=== PATIENT | female | born 1940 ===

== ENCOUNTER 2023-04-07 19:03 | Inpatient (IN) | payer MEDICARE, SELFPAY ==
[2023-04-07 19:30] VITALS: BP 168/79; PULSE 59; RESP 16; TEMP 36.6; O2SAT 98
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
[2023-04-07 22:03] VITALS: BMI 20.8
[2023-04-07] MEDS: Donepezil HCl 10 MG TABLET PO (22:10)
[2023-04-07] MEDS: Mirtazapine 7.5 MG TABLET PO (22:10)
--- NOTE | 2023-04-08 | ECG_ITS ---
Test Reason : CP Blood Pressure : / mmHG Vent. Rate : 065 BPM Atrial Rate : 065 BPM P-R Int : 160 ms QRS Dur : 122 ms QT Int : 452 ms P-R-T Axes : 000 166 161 degrees QTc Int : 470 ms Normal sinus rhythm Right bundle branch block Left posterior fascicular block Bifascicular block Inferior infarct , age undetermined Abnormal ECG No previous ECGs available Referred By: Ricardo Foster Electronically Signed By:PAN PALACIO MD
[2023-04-08] MEDS: Levothyroxine Sodium 75 MCG TABLET PO (05:53)
[2023-04-08 06:45] LABS: Cholesterol 173 mg/dL; HDL Cholesterol 57 mg/dL; LDL Cholesterol Calculated 102 mg/dl; Triglycerides 73 mg/dL
[2023-04-08 07:01] LABS: TSH reflex Free T4 12.79 uIU/mL (0.32-4.0)
[2023-04-08 07:55] LABS: Estimated Average Glucose 103 mg/dL; Hemoglobin A1c % 5.2 %
[2023-04-08 08:20] VITALS: BP 136/64; PULSE 79; RESP 18; TEMP 36.3; O2SAT 96
[2023-04-08] MEDS: Pravastatin Sodium 20 MG TABLET PO (09:18)
[2023-04-08] MEDS: predniSONE 2.5 MG TABLET PO (09:18)
--- NOTE | 2023-04-08 11:37 | HO.PSYADMNOT ---
HPI Date of Service: 04/08/23 Chief Complaint: Anxiety, depression Sources of Information: patient interviewed, chart reviewed and crisis/core team assessment reviewed HPI Subjective Notes: Saldana Warning and Conditional Voluntary Narrative: Ms. Vidal is a 83 year-old woman with hx of Dementia and depression (hx of ECT in her 40's) who was brought to [facility] from [facility] where she resides due to increase paranoid, combative behaviors. On the unit, pt presents as intermittently irritable. She reports she does not like the other facility because they don't do anything. Pt does not seem to recall increase agitation nor combative behaviors there. She does not know the year or month. She believes she is now living here. She states, well, at least they have movies here, but it is loud. She denies any physical concerns. She denies SI/HI. No signs of psychosis but patient is guarded. Past Psychiatric History: Inpt: in her 40's pt has hx of ECT. Past medication trials: olanzapine Hx of suicide attempts but unclear dates Medical Evaluation Reviewed: Yes Diagnostics Vital Signs (24Hr): Vital Signs - 24 hr 04/07/23 19:30 04/08/23 08:20 Temperature 97.9 F 97.4 F Pulse Rate 59 79 Respiratory Rate 16 18 Blood Pressure 168/79 H 136/64 Pulse Oximetry 98 96 Oxygen Delivery Method Room Air Room Air BMI result Body Mass Index 20.8 Labs Labs: Laboratory Results - last 48 hr 04/08/23 04/08/23 06:17 06:17 Estimat Average Glucose 103 Hemoglobin A1c % 5.2 Triglycerides 73 Cholesterol 173 LDL Cholesterol, Calc 102 HDL Cholesterol 57 TSH 12.79 H Free T4 0.80 Meds/Allergies Meds Home Medications Medication Instructions Recorded Confirmed Type donepezil 10 mg tablet 10 mg PO BEDTIME 04/07/23 04/07/23 History levothyroxine 75 mcg tablet 75 mcg PO DAILY 04/07/23 04/07/23 History mirtazapine 7.5 mg tablet 7.5 mg PO BEDTIME 04/07/23 04/07/23 History pravastatin 20 mg tablet 20 mg PO DAILY 04/07/23 04/07/23 History prednisone 2.5 mg tablet 2.5 mg PO DAILY 04/07/23 04/07/23 History Allergies Allergies Allergy/AdvReac Type Severity Reaction Status Date / Time citalopram AdvReac Unknown Verified 04/07/23 21:39 clopidogrel AdvReac Unknown Verified 04/07/23 21:39 isosorbide AdvReac Unknown Verified 04/07/23 21:39 tramadol AdvReac Unknown Verified 04/07/23 21:39 Mental Status Exam Mental Status Exam Narrative: Appearance: casually groomed, good hygiene, in NAD Behavior: somewhat guarded Psychomotor: no agitation or retardation noted Speech: clear, normal rate/rhythm/volume, spontaneous TP: tangential TC: not liking where she lives and thinks she now lives here in hospital Mood: okay Affect: somewhat irritable SI: none HI: none VH/AH: none Delusions: somewhat suspicious Insight/judgment: impaired x 2. Memory/cog: alert, not oriented to place, situation nor month or year. Assessment & Plan Assessment & Plan (1) Major neurocognitive disorder due to multiple etiologies: Status: Acute Code(s): F02.80 - Dementia in other diseases classified elsewhere, unspecified severity, without behavioral disturbance, psychotic disturbance, mood disturbance, and anxiety Plan Mrs. Vidal is an 83 year-old woman with hx of dementia, depression in her 40's (hx of ECT) who was brought to [facility] due to increase combative behaviora and increase paranoia. On the unit, pt presents as guarded and somewhat irritable. She thinks she now lives here. She has a HCP, who is her son. She is also DNR/DNI- pending copy of [facility] and HCP. PLAN 1. Admit to S1, 5 minutes check 2. continue olanzapine, prn as well 3. Obtain collateral information 4. Aftercare planning. Patient educated on: diagnosis and medication risk/benefits Reason for continued inpatient stay Substantial Risk for: harm to others and inability to function Statement Statement: I have reviewed the history and physical and performed a pertinent examination on my patient. No changes have occurred unless specified. If the History and Physical was not performed prior to admission, the Hospitalist's service will be consulted for completing the admission physical. Time Spent With Patient Time: Total time managing care of this patient today ____ minutes.
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
[2023-04-08 18:00] VITALS: BP 150/65; PULSE 59; RESP 19; TEMP 36.2; O2SAT 94
[2023-04-08] MEDS: Mirtazapine 7.5 MG TABLET PO (20:18)
[2023-04-08] MEDS: Donepezil HCl 10 MG TABLET PO (20:18)
[2023-04-09] MEDS: Levothyroxine Sodium 75 MCG TABLET PO (06:12)
[2023-04-09 07:00] VITALS: BMI 20.9
[2023-04-09 08:00] VITALS: BP 177/83; PULSE 68; RESP 16; TEMP 36.4; O2SAT 97
[2023-04-09] MEDS: Pravastatin Sodium 20 MG TABLET PO (08:33)
[2023-04-09] MEDS: predniSONE 2.5 MG TABLET PO (08:33)
[2023-04-09 19:59] VITALS: BP 164/70; PULSE 61; RESP 15; O2SAT 94
[2023-04-09] MEDS: Mirtazapine 7.5 MG TABLET PO (20:00)
[2023-04-09] MEDS: Donepezil HCl 10 MG TABLET PO (20:00)
[2023-04-10] MEDS: Levothyroxine Sodium 75 MCG TABLET PO (06:26)
--- NOTE | 2023-04-10 06:27 | HO.PSYCHPN ---
Subjective Subjective Date of Service: 04/09/23 Reason For Visit: Anxiety, depression Subjective Notes: Conditional Voluntary Healthcare Proxy: Yes Interim History: Patient having a difficult time irritable dysphoric admitted secondary to behavior problems irritability at assisted living Needs much reassurance and orientation Review of Systems Acute medical concerns: Yes TSH elevated Mental Status Exam Mental Status Exam Narrative: Appearance: casually groomed, good hygiene, restless Behavior: somewhat guarded Psychomotor: Restless asking what I should do Speech: clear, normal rate/rhythm/volume, spontaneous TP: tangential TC: not liking where she lives and thinks she now lives here in hospital Mood: Unhappy dysphoric Affect: somewhat irritable SI: none HI: none VH/AH: none Delusions: somewhat suspicious Insight/judgment: impaired x 2. Memory/cog: alert, not oriented to place, situation nor month or year. Diagnostics Vital Signs (24Hr): Vital Signs - 24 hr 04/09/23 08:00 04/09/23 19:59 Temperature 97.6 F Pulse Rate 68 61 Respiratory Rate 16 15 Blood Pressure 177/83 H 164/70 H Pulse Oximetry 97 94 Oxygen Delivery Method Room Air Room Air BMI result Body Mass Index 20.9 Labs Labs: Laboratory Results - last 48 hr 04/08/23 04/08/23 06:17 06:17 Estimat Average Glucose 103 Hemoglobin A1c % 5.2 Triglycerides 73 Cholesterol 173 LDL Cholesterol, Calc 102 HDL Cholesterol 57 TSH 12.79 H Free T4 0.80 Medications Medications Current Medications Acetaminophen (Acetaminophen 325 Mg Tablet) 650 mg PO Q6H PRN PRN Reason: Headache/Pain Mild Scale (1-3) Al Hydroxide/Mg Hydroxide (Magnesium Hydrox/Alum Hydrox 30 Ml Oral.Susp) 30 ml PO Q6H PRN PRN Reason: Heartburn/Nausea Donepezil HCl (Donepezil Hcl 10 Mg Tablet) 10 mg PO BEDTIME [facility] Last Admin: 04/09/23 20:00 Dose: 10 mg Levothyroxine Sodium (Levothyroxine Sodium 75 Mcg Tablet) 75 mcg PO DAILY@0700 [facility] Last Admin: 04/10/23 06:26 Dose: 75 mcg Magnesium Hydroxide (Milk Of Magnesia 30 Ml Oral.Susp) 30 ml PO DAILY PRN PRN Reason: Constipation Mirtazapine (Mirtazapine 7.5 Mg Tablet) 7.5 mg PO BEDTIME [facility] Last Admin: 04/09/23 20:00 Dose: 7.5 mg Olanzapine (Olanzapine 2.5 Mg Tablet) 2.5 mg PO TID PRN PRN Reason: agitation Pravastatin Sodium (Pravastatin Sodium 20 Mg Tablet) 20 mg PO DAILY [facility] Last Admin: 04/09/23 08:33 Dose: 20 mg Prednisone (Prednisone 2.5 Mg Tablet) 2.5 mg PO DAILY [facility] Last Admin: 04/09/23 08:33 Dose: 2.5 mg Trazodone HCl (Trazodone Hcl 50 Mg Tablet) 50 mg PO BEDTIME MRX1 PRN PRN Reason: Insomnia Allergies Allergies Allergy/AdvReac Type Severity Reaction Status Date / Time citalopram AdvReac Unknown Verified 04/07/23 21:39 clopidogrel AdvReac Unknown Verified 04/07/23 21:39 isosorbide AdvReac Unknown Verified 04/07/23 21:39 tramadol AdvReac Unknown Verified 04/07/23 21:39 Assessment & Plan Assessment & Plan (1) Major neurocognitive disorder due to multiple etiologies: Status: Acute Code(s): F02.80 - Dementia in other diseases classified elsewhere, unspecified severity, without behavioral disturbance, psychotic disturbance, mood disturbance, and anxiety Plan Mrs. Vidal is an 83 year-old woman with hx of dementia, depression in her 40's (hx of ECT) who was brought to [facility] due to increase combative behaviora and increase paranoia. On the unit, pt presents as guarded and somewhat irritable. She thinks she now lives here. She has a HCP, who is her son. She is also DNR/DNI- pending copy of [facility] and HCP. PLAN 1. Admit to S1, 5 minutes check 2. continue olanzapine, prn as well 3. Obtain collateral information 4. Aftercare planning. 04/09/2023 Continue mirtazapine Aricept increase Synthroid to 100 mcg if we were clear that patient has been taking the 75 mcg at home at assisted living Suggest Namenda to help with behavioral difficulties Patient was seen on 04/09/22 approximately 11:30 late entry Reason for continued inpatient stay Substantial Risk for: inability to function, rapid decompensation and med/psych decompensation Time Spent With Patient Time: Total time managing care of this patient today ____ minutes.
[2023-04-10 07:45] VITALS: BP 151/70; PULSE 69; RESP 18; TEMP 36.6; O2SAT 95
[2023-04-10] MEDS: predniSONE 2.5 MG TABLET PO (08:04)
[2023-04-10] MEDS: Pravastatin Sodium 20 MG TABLET PO (08:04)
--- NOTE | 2023-04-10 10:24 | HO.PSYCHPN ---
Subjective Subjective Date of Service: 04/10/23 Reason For Visit: Anxiety, depression Subjective Notes: Conditional Voluntary Interim History: Per nursing, pt slept through the night. Pt thinks she now lives here. She tells this song writer she does not belong in a place where there are old people, I'm younger than them pointing at her peers. Pt not oriented to place or situation. No behavioral concerns, but will add low dose antipsychotic may help with some suspiciousness. Review of Systems Review of Systems Patient has no acute medical complaints at this time Mental Status Exam Mental Status Exam Narrative: Appearance: casually groomed, good hygiene, restless Behavior: somewhat guarded Psychomotor: Restless asking what I should do Speech: clear, normal rate/rhythm/volume, spontaneous TP: tangential TC: not liking where she lives and thinks she now lives here in hospital Mood: Unhappy dysphoric Affect: somewhat irritable SI: none HI: none VH/AH: none Delusions: somewhat suspicious Insight/judgment: impaired x 2. Memory/cog: alert, not oriented to place, situation nor month or year. Diagnostics Vital Signs (24Hr): Vital Signs - 24 hr 04/09/23 19:59 04/10/23 07:45 Temperature 97.9 F Pulse Rate 61 69 Respiratory Rate 15 18 Blood Pressure 164/70 H 151/70 H Pulse Oximetry 94 95 Oxygen Delivery Method Room Air Room Air BMI result Body Mass Index 20.9 Medications Medications Current Medications Acetaminophen (Acetaminophen 325 Mg Tablet) 650 mg PO Q6H PRN PRN Reason: Headache/Pain Mild Scale (1-3) Al Hydroxide/Mg Hydroxide (Magnesium Hydrox/Alum Hydrox 30 Ml Oral.Susp) 30 ml PO Q6H PRN PRN Reason: Heartburn/Nausea Donepezil HCl (Donepezil Hcl 10 Mg Tablet) 10 mg PO BEDTIME [facility] Last Admin: 04/09/23 20:00 Dose: 10 mg Levothyroxine Sodium (Levothyroxine Sodium 75 Mcg Tablet) 75 mcg PO DAILY@0700 [facility] Last Admin: 04/10/23 06:26 Dose: 75 mcg Magnesium Hydroxide (Milk Of Magnesia 30 Ml Oral.Susp) 30 ml PO DAILY PRN PRN Reason: Constipation Mirtazapine (Mirtazapine 7.5 Mg Tablet) 7.5 mg PO BEDTIME [facility] Last Admin: 07/27/23 20:00 Dose: 7.5 mg Olanzapine (Olanzapine 2.5 Mg Tablet) 2.5 mg PO TID PRN PRN Reason: agitation Pravastatin Sodium (Pravastatin Sodium 20 Mg Tablet) 20 mg PO DAILY [facility] Last Admin: 04/10/23 08:04 Dose: 20 mg Prednisone (Prednisone 2.5 Mg Tablet) 2.5 mg PO DAILY [facility] Last Admin: 04/10/23 08:04 Dose: 2.5 mg Trazodone HCl (Trazodone Hcl 50 Mg Tablet) 50 mg PO BEDTIME MRX1 PRN PRN Reason: Insomnia Allergies Allergies Allergy/AdvReac Type Severity Reaction Status Date / Time citalopram AdvReac Unknown Verified 04/07/23 21:39 clopidogrel AdvReac Unknown Verified 04/07/23 21:39 isosorbide AdvReac Unknown Verified 04/07/23 21:39 tramadol AdvReac Unknown Verified 04/07/23 21:39 Assessment & Plan Assessment & Plan (1) Major neurocognitive disorder due to multiple etiologies: Status: Acute Code(s): F02.80 - Dementia in other diseases classified elsewhere, unspecified severity, without behavioral disturbance, psychotic disturbance, mood disturbance, and anxiety Plan Mrs. Vidal is an 83 year-old woman with hx of dementia, depression in her 40's (hx of ECT) who was brought to [facility] due to increase combative behaviora and increase paranoia. On the unit, pt presents as guarded and somewhat irritable. She thinks she now lives here. She has a HCP, who is her son. She is also DNR/DNI- pending copy of [facility] and HCP. PLAN 1. Admit to S1, 5 minutes check 2. continue olanzapine, prn as well 3. Obtain collateral information 4. Aftercare planning. 04/10- will try low dose risperidone, instead of olanzapine to avoid over sedation for suspiciousness. Reason for continued inpatient stay Substantial Risk for: inability to function Time Spent With Patient Time: Total time managing care of this patient today ____ minutes.
[2023-04-10 18:00] VITALS: BP 140/65; PULSE 66; RESP 18; TEMP 36.8; O2SAT 93
[2023-04-10] MEDS: Mirtazapine 7.5 MG TABLET PO (20:20)
[2023-04-10] MEDS: Donepezil HCl 10 MG TABLET PO (20:20)
[2023-04-10] MEDS: traZODone HCL 50 MG TABLET PO (22:08)
[2023-04-11] MEDS: Levothyroxine Sodium 75 MCG TABLET PO (06:03)
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
[2023-04-11] MEDS: Pravastatin Sodium 20 MG TABLET PO (08:03)
[2023-04-11] MEDS: predniSONE 2.5 MG TABLET PO (08:03)
[2023-04-11 08:11] VITALS: BP 146/69; PULSE 66; RESP 18; TEMP 36.1; O2SAT 97
[2023-04-11 18:00] VITALS: BP 162/72; PULSE 56; RESP 18; TEMP 36; O2SAT 95
[2023-04-11] MEDS: Mirtazapine 7.5 MG TABLET PO (20:14)
[2023-04-11] MEDS: traZODone HCL 50 MG TABLET PO (20:14)
[2023-04-11] MEDS: Donepezil HCl 10 MG TABLET PO (20:14)
--- NOTE | 2023-04-12 07:38 | P.PNPSI_ITS ---
Subjective Subjective Date of Service: 04/12/23 Reason For Visit: Anxiety, depression Subjective Notes: Conditional Voluntary Interim History: The nursing staff reported the patient had been alert oriented to self. Her heart rate had been running in the low 50s and she to her medications with encouragement per she has took trazodone last night and slept 9 hours. On interview the patient remains confused no changes in her mental status. She was asking for her discharge. Mental Status Exam Mental Status Exam Patient Appearance: Appropriate Patient Orientation: Person and Situation Level of Consciousness: Awake Patient Behavior: Guarded Mood Description: Calm Affect Description: Constricted Patient Cognition Impaired: Yes Ability to Follow Directions: Good Speech Pattern: Clear Hallucinations: None Delusions: Not Present Thought Process: Illogical, Distracted and Slowed Thinking Thought Content: positive for [place] and positive for Poverty of Content Judgement: Poor Diagnostics Vital Signs (24Hr): Vital Signs - 24 hr 04/11/23 08:11 04/11/23 18:00 Temperature 97.0 F 96.8 F Pulse Rate 66 56 Respiratory Rate 18 18 Blood Pressure 146/69 H 162/72 H Pulse Oximetry 97 95 Oxygen Delivery Method Room Air Room Air BMI result Body Mass Index 20.9 Medications Medications Current Medications Acetaminophen (Acetaminophen 325 Mg Tablet) 650 mg PO Q6H PRN PRN Reason: Headache/Pain Mild Scale (1-3) Al Hydroxide/Mg Hydroxide (Magnesium Hydrox/Alum Hydrox 30 Ml Oral.Susp) 30 ml PO Q6H PRN PRN Reason: Heartburn/Nausea Donepezil HCl (Donepezil Hcl 10 Mg Tablet) 10 mg PO BEDTIME [facility] Last Admin: 04/11/23 20:14 Dose: 10 mg Levothyroxine Sodium (Levothyroxine Sodium 75 Mcg Tablet) 75 mcg PO DAILY@0700 [facility] Last Admin: 04/12/23 05:22 Dose: Not Given Magnesium Hydroxide (Milk Of Magnesia 30 Ml Oral.Susp) 30 ml PO DAILY PRN PRN Reason: Constipation Mirtazapine (Mirtazapine 7.5 Mg Tablet) 7.5 mg PO BEDTIME [facility] Last Admin: 04/11/23 20:14 Dose: 7.5 mg Olanzapine (Olanzapine 2.5 Mg Tablet) 2.5 mg PO TID PRN PRN Reason: agitation Pravastatin Sodium (Pravastatin Sodium 20 Mg Tablet) 20 mg PO DAILY [facility] Last Admin: 04/11/23 08:03 Dose: 20 mg Prednisone (Prednisone 2.5 Mg Tablet) 2.5 mg PO DAILY [facility] Last Admin: 04/11/23 08:03 Dose: 2.5 mg Trazodone HCl (Trazodone Hcl 50 Mg Tablet) 50 mg PO BEDTIME MRX1 PRN PRN Reason: Insomnia Last Admin: 04/11/23 20:14 Dose: 50 mg Allergies Allergies Allergy/AdvReac Type Severity Reaction Status Date / Time citalopram AdvReac Unknown Verified 04/07/23 21:39 clopidogrel AdvReac Unknown Verified 04/07/23 21:39 isosorbide AdvReac Unknown Verified 04/07/23 21:39 tramadol AdvReac Unknown Verified 04/07/23 21:39 Assessment & Plan Assessment & Plan (1) Major neurocognitive disorder due to multiple etiologies: Status: Acute Code(s): F02.80 - Dementia in other diseases classified elsewhere, unspecified severity, without behavioral disturbance, psychotic disturbance, mood disturbance, and anxiety Plan Mrs. Vidal is an 83 year-old woman with hx of dementia, depression in her 40's (hx of ECT) who was brought to [facility] due to increase combative beha viora and increase paranoia. On the unit, pt presents as guarded and somewhat irritable. She thinks she now lives here. She has a HCP, who is her son. She is also DNR/DNI- pending copy of [facility] and HCP. PLAN 1. Admit to S1, 5 minutes check 2. continue olanzapine, prn as well 3. Obtain collateral information 4. Aftercare planning. 5. Olanzapine was discontinue and cross taper with Risperdal on April 10 to avoid over-sedation. Reason for continued inpatient stay Substantial Risk for: inability to function, rapid decompensation and med/psych decompensation Time Spent With Patient Time: Total time managing care of this patient today __20__ minutes.
[2023-04-12 07:45] VITALS: BP 175/79; PULSE 64; RESP 18; TEMP 36.6; O2SAT 98
[2023-04-12] MEDS: predniSONE 2.5 MG TABLET PO (08:09)
[2023-04-12] MEDS: Pravastatin Sodium 20 MG TABLET PO (08:09)
[2023-04-12 18:00] VITALS: BP 120/70; PULSE 59; RESP 18; TEMP 36.9; O2SAT 96
[2023-04-12] MEDS: Mirtazapine 7.5 MG TABLET PO (20:21)
[2023-04-12] MEDS: Donepezil HCl 10 MG TABLET PO (20:21)
[2023-04-13 08:00] VITALS: BP 192/84; PULSE 74; RESP 18; TEMP 36.6; O2SAT 96
[2023-04-13] MEDS: predniSONE 2.5 MG TABLET PO (08:34)
[2023-04-13] MEDS: Levothyroxine Sodium 75 MCG TABLET PO (08:34)
[2023-04-13] MEDS: Pravastatin Sodium 20 MG TABLET PO (08:34)
[2023-04-13] MEDS: amLODIPine Besylate 2.5 MG TABLET PO (08:54)
--- NOTE | 2023-04-13 09:32 | PC.NURSE ---
Pt upon admission pts neckace was neglected to be removed. On 04/10/23 technical writer noticed necklace and informed pt that per unit policy the necklace needed to be locked up until discharge. Pt refused to give technical writer the necklace and stated i have to use the bathroom this technical writer waited for pt to finish in restroom prior to removing necklace for safe storage. Once pt came out of restroom she stated I flushed the necklace down the toilet. Staff searched pts room for necklace unable to locate. pt continues to report I flushed it.
--- NOTE | 2023-04-13 09:58 | P.PNPSI_ITS ---
Subjective Subjective Date of Service: 04/13/23 Reason For Visit: Anxiety, depression Subjective Notes: Conditional Voluntary Healthcare Proxy: Yes Interim History: Pt slept through the night. She is taking medications as prescribed. She con tinues to report that she does not know why she is living here now, that she shouldn't be living in a place with old people. Pt reports there is not much for her to do here. She reports she wants to go back to [facility]. Pt reports she hopes to be discharged before summer, I like to go to swim. Pt suspicious but no overt delusional content reported. She blames her son Justin for leaving me here. No behavioral concerns. Pt has not been aggressive towards staff or peers. Mental Status Exam Mental Status Exam Narrative: Appearance: casually groomed, good hygiene, restless Behavior: somewhat guarded Psychomotor: Restless asking what I should do Speech: clear, normal rate/rhythm/volume, spontaneous TP:goal oriented, wanting to go home TC: not liking where she lives and thinks she now lives here in hospital Mood: okay Affect: somewhat irritable, suspicious SI: none HI: none VH/AH: none Delusions: somewhat suspicious Insight/judgment: impaired x 2. Memory/cog: alert, not oriented to place, situation nor month or year. Diagnostics Vital Signs (24Hr): Vital Signs - 24 hr 04/12/23 18:00 04/13/23 08:00 Temperature 98.4 F 97.9 F Pulse Rate 59 74 Respiratory Rate 18 18 Blood Pressure 120/70 192/84 H Pulse Oximetry 96 96 Oxygen Delivery Method Room Air Room Air BMI result Body Mass Index 20.9 Medications Medications Current Medications Acetaminophen (Acetaminophen 325 Mg Tablet) 650 mg PO Q6H PRN PRN Reason: Headache/Pain Mild Scale (1-3) Al Hydroxide/Mg Hydroxide (Magnesium Hydrox/Alum Hydrox 30 Ml Oral.Susp) 30 ml PO Q6H PRN PRN Reason: Heartburn/Nausea Amlodipine Besylate (Amlodipine Besylate 2.5 Mg Tablet) 2.5 mg PO DAILY [facility]; Protocol Last Admin: 04/13/23 08:54 Dose: 2.5 mg Donepezil HCl (Donepezil Hcl 10 Mg Tablet) 10 mg PO BEDTIME [facility] Last Admin: 04/12/23 20:21 Dose: 10 mg Levothyroxine Sodium (Levothyroxine Sodium 75 Mcg Tablet) 75 mcg PO DAILY@0700 [facility] Last Admin: 04/13/23 08:34 Dose: 75 mcg Magnesium Hydroxide (Milk Of Magnesia 30 Ml Oral.Susp) 30 ml PO DAILY PRN PRN Reason: Constipation Mirtazapine (Mirtazapine 7.5 Mg Tablet) 7.5 mg PO BEDTIME [facility] Last Admin: 04/12/23 20:21 Dose: 7.5 mg Olanzapine (Olanzapine 2.5 Mg Tablet) 2.5 mg PO TID PRN PRN Reason: agitation Pravastatin Sodium (Pravastatin Sodium 20 Mg Tablet) 20 mg PO DAILY [facility] Last Admin: 04/13/23 08:34 Dose: 20 mg Prednisone (Prednisone 2.5 Mg Tablet) 2.5 mg PO DAILY [facility] Last Admin: 04/13/23 08:34 Dose: 2.5 mg Risperidone (Risperidone 0.5 Mg Tablet) 0.5 mg PO BEDTIME [facility] Trazodone HCl (Trazodone Hcl 50 Mg Tablet) 50 mg PO BEDTIME MRX1 PRN PRN Reason: Insomnia Last Admin: 04/11/23 20:14 Dose: 50 mg Allergies Allergies Allergy/AdvReac Type Severity Reaction Status Date / Time citalopram AdvReac Unknown Verified 04/07/23 21:39 clopidogrel AdvReac Unknown Verified 04/07/23 21:39 isosorbide AdvReac Unknown Verified 04/07/23 21:39 tramadol AdvReac Unknown Verified 04/07/23 21:39 Assessment & Plan Assessment & Plan (1) Major neurocognitive disorder due to multiple etiologies: Status: Acute Code(s): F02.80 - Dementia in other diseases classified elsewhere, unspecified severity, without behavioral disturbance, psychotic disturbance, mood disturbance, and anxiety Plan Mrs. Vidal is an 83 year-old woman with hx of dementia, depression in her 40's (hx of ECT) who was brought to [facility] due to increase combative behaviora and increase paranoia. On the unit, pt presents as guarded and somewhat irritable. She thinks she now lives here. She has a HCP, who is her son. She is also DNR/DNI- pending copy of [facility] and HCP. PLAN 04/13 start risperidone 0.5mg po qhs. prn olanzapine but monitor for oversedation. SBP consistently elevated in 170-160's. Not on any HTN meds. Will start low dose amlodipine 2.5mg po daily. Meeting with son, who is HCP, Justin, scheduled for 04/15/2023 Reason for continued inpatient stay Substantial Risk for: inability to function Time Spent With Patient Time: Total time managing care of this patient today ____ minutes.
[2023-04-13 18:00] VITALS: BP 177/73; PULSE 67; RESP 16; TEMP 36.4; O2SAT 95
[2023-04-14] MEDS: Levothyroxine Sodium 75 MCG TABLET PO (06:20)
[2023-04-14 08:00] VITALS: BP 179/83; PULSE 65; RESP 17; TEMP 36.5; O2SAT 65
[2023-04-14] MEDS: predniSONE 2.5 MG TABLET PO (08:00)
[2023-04-14] MEDS: amLODIPine Besylate 2.5 MG TABLET PO (08:00)
[2023-04-14] MEDS: Pravastatin Sodium 20 MG TABLET PO (08:00)
--- NOTE | 2023-04-14 13:16 | P.PNPSI_ITS ---
Subjective Subjective Date of Service: 04/14/23 Reason For Visit: Anxiety, depression Subjective Notes: Conditional Voluntary Interim History: Pt sleeping through the night. She continues to report that she does not like to live here. She denies SI/HI. No VH/AH. No behavioral concerns. She pleasant on approach. Not oriented to place or situation. Medication Compliance: Yes Review of Systems Review of Systems Patient has no acute medical complaints at this time Mental Status Exam Mental Status Exam Narrative: Appearance: casually groomed, good hygiene, restless Behavior: somewhat guarded Psychomotor: Restless asking what I should do Speech: clear, normal rate/rhythm/volume, spontaneous TP:goal oriented, wanting to go home TC: not liking where she lives and thinks she now lives here in hospital Mood: okay Affect: somewhat irritable, suspicious SI: none HI: none VH/AH: none Delusions: somewhat suspicious Insight/judgment: impaired x 2. Memory/cog: alert, not oriented to place, situation nor month or year. Diagnostics Vital Signs (24Hr): Vital Signs - 24 hr 04/13/23 18:00 04/14/23 08:00 Temperature 97.5 F 97.7 F Pulse Rate 67 65 Respiratory Rate 16 17 Blood Pressure 177/73 H 179/83 H Pulse Oximetry 95 65 L Oxygen Delivery Method Room Air Room Air BMI result Body Mass Index 20.9 Medications Medications Current Medications Acetaminophen (Acetaminophen 325 Mg Tablet) 650 mg PO Q6H PRN PRN Reason: Headache/Pain Mild Scale (1-3) Al Hydroxide/Mg Hydroxide (Magnesium Hydrox/Alum Hydrox 30 Ml Oral.Susp) 30 ml PO Q6H PRN PRN Reason: Heartburn/Nausea Amlodipine Besylate (Amlodipine Besylate 2.5 Mg Tablet) 2.5 mg PO DAILY [facility]; Protocol Last Admin: 04/14/23 08:00 Dose: 2.5 mg Donepezil HCl (Donepezil Hcl 10 Mg Tablet) 10 mg PO BEDTIME [facility] Last Admin: 04/13/23 20:18 Dose: Not Given Levothyroxine Sodium (Levothyroxine Sodium 75 Mcg Tablet) 75 mcg PO DAILY@0700 [facility] Last Admin: 04/14/23 06:20 Dose: 75 mcg Magnesium Hydroxide (Milk Of Magnesia 30 Ml Oral.Susp) 30 ml PO DAILY PRN PRN Reason: Constipation Mirtazapine (Mirtazapine 7.5 Mg Tablet) 7.5 mg PO BEDTIME [facility] Last Admin: 04/13/23 20:18 Dose: Not Given Olanzapine (Olanzapine 2.5 Mg Tablet) 2.5 mg PO TID PRN PRN Reason: agitation Pravastatin Sodium (Pravastatin Sodium 20 Mg Tablet) 20 mg PO DAILY [facility] Last Admin: 04/14/23 08:00 Dose: 20 mg Prednisone (Prednisone 2.5 Mg Tablet) 2.5 mg PO DAILY [facility] Last Admin: 04/14/23 08:00 Dose: 2.5 mg Risperidone (Risperidone 0.5 Mg Tablet) 0.5 mg PO BEDTIME [facility] Last Admin: 04/13/23 20:19 Dose: Not Given Trazodone HCl (Trazodone Hcl 50 Mg Tablet) 50 mg PO BEDTIME MRX1 PRN PRN Reason: Insomnia Last Admin: 04/11/23 20:14 Dose: 50 mg Allergies Allergies Allergy/AdvReac Type Severity Reaction Status Date / Time citalopram AdvReac Unknown Verified 04/07/23 21:39 clopidogrel AdvReac Unknown Verified 04/07/23 21:39 isosorbide AdvReac Unknown Verified 04/07/23 21:39 tramadol AdvReac Unknown Verified 04/07/23 21:39 Assessment & Plan Assessment & Plan (1) Major neurocognitive disorder due to multiple etiologies: Status: Acute Code(s): F02.80 - Dementia in other diseases classified elsewhere, unspecified severity, without behavioral disturbance, psychotic disturbance, mood disturbance, and anxiety Plan Mrs. Vidal is an 83 year-old woman with hx of dementia, depression in her 40's (hx of ECT) who was brought to [facility] due to increase combative behaviora and increase paranoia. On the unit, pt presents as guarded and somewhat irritable. She thinks she now lives here. She has a HCP, who is her son. She is also DNR/DNI- pending copy of [facility] and HCP. PLAN 04/13 start risperidone 0.5mg po qhs. prn olanzapine but monitor for oversedation. SBP consistently elevated in 170-160's. Not on any HTN meds. Will start low dose amlodipine 2.5mg po daily. Meeting with son, who is HCP, Justin, scheduled for 04/15/202304/14 continue tx. Reason for continued inpatient stay Substantial Risk for: inability to function Time Spent With Patient Time: Total time managing care of this patient today ____ minutes.
[2023-04-14 19:35] VITALS: BP 150/86; PULSE 60; RESP 16; TEMP 36.6; O2SAT 94
[2023-04-14] MEDS: Mirtazapine 7.5 MG TABLET PO (20:08)
[2023-04-14] MEDS: Donepezil HCl 10 MG TABLET PO (20:08)
[2023-04-14] MEDS: risperiDONE 0.5 MG TABLET PO (20:08)
[2023-04-15] MEDS: Levothyroxine Sodium 75 MCG TABLET PO (06:21)
[2023-04-15 07:55] VITALS: BP 172/81; PULSE 63; RESP 18; TEMP 36.8; O2SAT 98
[2023-04-15] MEDS: amLODIPine Besylate 2.5 MG TABLET PO ×2 (08:25→14:30)
[2023-04-15] MEDS: Pravastatin Sodium 20 MG TABLET PO (08:26)
[2023-04-15] MEDS: predniSONE 2.5 MG TABLET PO (08:26)
--- NOTE | 2023-04-15 14:10 | P.PNPSI_ITS ---
Subjective Subjective Date of Service: 04/15/23 Reason For Visit: Anxiety, depression Subjective Notes: Conditional Voluntary Interim History: Pt sleeping through the night. Family meeting to discuss progress and plan for d/c No behavioral concerns. Pt has not shown aggression. She slightly irritable at times related to being here. Pt visible on the unit. No SI/HI. She is taking medications as prescribed. Review of Systems Review of Systems Patient has no acute medical complaints at this time Mental Status Exam Mental Status Exam Narrative: Appearance: casually groomed, good hygiene, restless Behavior: somewhat guarded Psychomotor: Restless asking what I should do Speech: clear, normal rate/rhythm/volume, spontaneous TP:goal oriented, wanting to go home TC: not liking where she lives and thinks she now lives here in hospital Mood: okay Affect: somewhat irritable, suspicious SI: none HI: none VH/AH: none Delusions: somewhat suspicious Insight/judgment: impaired x 2. Memory/cog: alert, not oriented to place, situation nor month or year. Patient Appearance: Appropriate Patient Orientation: Person and Situation Level of Consciousness: Awake Patient Behavior: Guarded Mood Description: Calm Affect Description: Constricted Patient Cognition Impaired: Yes Ability to Follow Directions: Good Speech Pattern: Clear Diagnostics Vital Signs (24Hr): Vital Signs - 24 hr 04/14/23 19:35 04/15/23 07:55 Temperature 97.9 F 98.2 F Pulse Rate 60 63 Respiratory Rate 16 18 Blood Pressure 150/86 H 172/81 H Pulse Oximetry 94 98 Oxygen Delivery Method Room Air Room Air BMI result Body Mass Index 20.9 Medications Medications Current Medications Acetaminophen (Acetaminophen 325 Mg Tablet) 650 mg PO Q6H PRN PRN Reason: Headache/Pain Mild Scale (1-3) Al Hydroxide/Mg Hydroxide (Magnesium Hydrox/Alum Hydrox 30 Ml Oral.Susp) 30 ml PO Q6H PRN PRN Reason: Heartburn/Nausea Amlodipine Besylate (Amlodipine Besylate 5 Mg Tablet) 5 mg PO DAILY [facility]; Protocol Donepezil HCl (Donepezil Hcl 10 Mg Tablet) 10 mg PO BEDTIME [facility] Last Admin: 04/14/23 20:08 Dose: 10 mg Levothyroxine Sodium (Levothyroxine Sodium 75 Mcg Tablet) 75 mcg PO DAILY@0700 [facility] Last Admin: 04/15/23 06:21 Dose: 75 mcg Magnesium Hydroxide (Milk Of Magnesia 30 Ml Oral.Susp) 30 ml PO DAILY PRN PRN Reason: Constipation Mirtazapine (Mirtazapine 7.5 Mg Tablet) 7.5 mg PO BEDTIME [facility] Last Admin: 04/14/23 20:08 Dose: 7.5 mg Olanzapine (Olanzapine 2.5 Mg Tablet) 2.5 mg PO TID PRN PRN Reason: agitation Pravastatin Sodium (Pravastatin Sodium 20 Mg Tablet) 20 mg PO DAILY [facility] Last Admin: 04/15/23 08:26 Dose: 20 mg Prednisone (Prednisone 2.5 Mg Tablet) 2.5 mg PO DAILY [facility] Last Admin: 04/15/23 08:26 Dose: 2.5 mg Risperidone (Risperidone 0.5 Mg Tablet) 0.5 mg PO BEDTIME [facility] Last Admin: 04/14/23 20:08 Dose: 0.5 mg Trazodone HCl (Trazodone Hcl 50 Mg Tablet) 50 mg PO BEDTIME MRX1 PRN PRN Reason: Insomnia Last Admin: 04/11/23 20:14 Dose: 50 mg Allergies Allergies Allergy/AdvReac Type Severity Reaction Status Date / Time citalopram AdvReac Unknown Verified 04/07/23 21:39 clopidogrel AdvReac Unknown Verified 04/07/23 21:39 isosorbide AdvReac Unknown Verified 04/07/23 21:39 tramadol AdvReac Unknown Verified 04/07/23 21:39 Assessment & Plan Assessment & Plan (1) Major neurocognitive disorder due to multiple etiologies: Status: Acute Code(s): F02.80 - Dementia in other diseases classified elsewhere, unspecified severity, without behavioral disturbance, psychotic disturbance, mood disturbance, and anxiety Plan Mrs. Vidal is an 83 year-old woman with hx of dementia, depression in her 40's (hx of ECT) who was brought to [facility] due to increase combative behaviora and increase paranoia. On the unit, pt presents as guarded and somewhat irritable. She thinks she now lives here. She has a HCP, who is her son. She is also DNR/DNI- pending copy of [facility] and HCP. PLAN 04/13 start risperidone 0.5mg po qhs. prn olanzapine but monitor for oversedation. SBP consistently elevated in 170-160's. Not on any HTN meds. Will start low dose amlodipine 2.5mg po daily. Meeting with son, who is HCP, Justin, scheduled for 04/15/202304/14 continue tx. 04/15 continue tx. Reason for continued inpatient stay Substantial Risk for: inability to function Time Spent With Patient Time: Total time managing care of this patient today ____ minutes.
[2023-04-15 19:35] VITALS: BP 146/65; PULSE 66; RESP 18; TEMP 36.9; O2SAT 97
[2023-04-15] MEDS: Donepezil HCl 10 MG TABLET PO (20:19)
[2023-04-15] MEDS: risperiDONE 0.5 MG TABLET PO (20:19)
[2023-04-15] MEDS: Mirtazapine 7.5 MG TABLET PO (20:19)
[2023-04-16] MEDS: Levothyroxine Sodium 75 MCG TABLET PO (06:20)
[2023-04-16 07:00] VITALS: BMI 21.6
[2023-04-16 08:00] VITALS: BP 135/65; PULSE 85; RESP 18; TEMP 36.1; O2SAT 95
[2023-04-16] MEDS: amLODIPine Besylate 5 MG TABLET PO (08:35)
[2023-04-16] MEDS: predniSONE 2.5 MG TABLET PO (08:36)
[2023-04-16] MEDS: Pravastatin Sodium 20 MG TABLET PO (08:36)
[2023-04-16 18:00] VITALS: BP 143/64; PULSE 58; RESP 17; O2SAT 96
[2023-04-16] MEDS: risperiDONE 0.5 MG TABLET PO (20:04)
[2023-04-16] MEDS: Donepezil HCl 10 MG TABLET PO (20:04)
[2023-04-16] MEDS: Mirtazapine 7.5 MG TABLET PO (20:04)
[2023-04-17] MEDS: Levothyroxine Sodium 75 MCG TABLET PO (06:25)
--- NOTE | 2023-04-17 07:15 | P.PNPSI_ITS ---
Subjective Subjective Date of Service: 04/16/23 Reason For Visit: Anxiety, depression Subjective Notes: Conditional Voluntary Interim History: Pt sleeping through the night. No behavioral concerns. Pt has not shown aggression. She slightly irritable at times related to being here. Pt visible on the unit. No SI/HI. She is taking medications as prescribed. BP- trending down with amlodipine. Medication Compliance: Yes Review of Systems Review of Systems Patient has no acute medical complaints at this time Mental Status Exam Mental Status Exam Narrative: Appearance: casually groomed, good hygiene, restless Behavior: somewhat guarded Psychomotor: Restless asking what I should do Speech: clear, normal rate/rhythm/volume, spontaneous TP:goal oriented, wanting to go home TC: not liking where she lives and thinks she now lives here in hospital Mood: okay Affect: somewhat irritable, suspicious SI: none HI: none VH/AH: none Delusions: somewhat suspicious Insight/judgment: impaired x 2. Memory/cog: alert, not oriented to place, situation nor month or year. Diagnostics Vital Signs (24Hr): Vital Signs - 24 hr 04/16/23 08:00 04/16/23 18:00 Temperature 97.0 F Pulse Rate 85 58 Respiratory Rate 18 17 Blood Pressure 135/65 143/64 H Pulse Oximetry 95 96 Oxygen Delivery Method Room Air Room Air BMI result Body Mass Index 21.6 Medications Medications Current Medications Acetaminophen (Acetaminophen 325 Mg Tablet) 650 mg PO Q6H PRN PRN Reason: Headache/Pain Mild Scale (1-3) Al Hydroxide/Mg Hydroxide (Magnesium Hydrox/Alum Hydrox 30 Ml Oral.Susp) 30 ml PO Q6H PRN PRN Reason: Heartburn/Nausea Amlodipine Besylate (Amlodipine Besylate 5 Mg Tablet) 5 mg PO DAILY [facility]; Protocol Last Admin: 04/16/23 08:35 Dose: 5 mg Donepezil HCl (Donepezil Hcl 10 Mg Tablet) 10 mg PO BEDTIME [facility] Last Admin: 04/16/23 20:04 Dose: 10 mg Levothyroxine Sodium (Levothyroxine Sodium 75 Mcg Tablet) 75 mcg PO DAILY@0700 [facility] Last Admin: 04/17/23 06:25 Dose: 75 mcg Magnesium Hydroxide (Milk Of Magnesia 30 Ml Oral.Susp) 30 ml PO DAILY PRN PRN Reason: Constipation Mirtazapine (Mirtazapine 7.5 Mg Tablet) 7.5 mg PO BEDTIME [facility] Last Admin: 04/16/23 20:04 Dose: 7.5 mg Olanzapine (Olanzapine 2.5 Mg Tablet) 2.5 mg PO TID PRN PRN Reason: agitation Pravastatin Sodium (Pravastatin Sodium 20 Mg Tablet) 20 mg PO DAILY [facility] Last Admin: 04/16/23 08:36 Dose: 20 mg Prednisone (Prednisone 2.5 Mg Tablet) 2.5 mg PO DAILY [facility] Last Admin: 04/16/23 08:36 Dose: 2.5 mg Risperidone (Risperidone 0.5 Mg Tablet) 0.5 mg PO BEDTIME [facility] Last Admin: 04/16/23 20:04 Dose: 0.5 mg Trazodone HCl (Trazodone Hcl 50 Mg Tablet) 50 mg PO BEDTIME MRX1 PRN PRN Reason: Insomnia Last Admin: 04/11/23 20:14 Dose: 50 mg Allergies Allergies Allergy/AdvReac Type Severity Reaction Status Date / Time citalopram AdvReac Unknown Verified 04/07/23 21:39 clopidogrel AdvReac Unknown Verified 04/07/23 21:39 isosorbide AdvReac Unknown Verified 04/07/23 21:39 tramadol AdvReac Unknown Verified 04/07/23 21:39 Assessment & Plan Assessment & Plan (1) Major neurocognitive disorder due to multiple etiologies: Status: Acute Code(s): F02.80 - Dementia in other diseases classified elsewhere, unspecified severity, without behavioral disturbance, psychotic disturbance, mood disturbance, and anxiety Plan Mrs. Vidal is an 83 year-old woman with hx of dementia, depression in her 40's (hx of ECT) who was brought to [facility] due to increase combative behaviora and increase paranoia. On the unit, pt presents as guarded and somewhat irritable. She thinks she now lives here. She has a HCP, who is her son. She is also DNR/DNI- pending copy of [facility] and HCP. PLAN 04/13 start risperidone 0.5mg po qhs. prn olanzapine but monitor for oversedation. SBP consistently elevated in 170-160's. Not on any HTN meds. Will start low dose amlodipine 2.5mg po daily. Meeting with son, who is HCP, Justin, scheduled for 04/15/202304/14 continue tx. 04/15 continue tx. 04/16 continue tx. Reason for continued inpatient stay Substantial Risk for: inability to function Time Spent With Patient Time: Total time managing care of this patient today ____ minutes.
[2023-04-17 08:00] VITALS: BP 174/75; PULSE 76; RESP 18; TEMP 36.7; O2SAT 97
[2023-04-17] MEDS: Pravastatin Sodium 20 MG TABLET PO (08:05)
[2023-04-17] MEDS: predniSONE 2.5 MG TABLET PO (08:05)
[2023-04-17] MEDS: amLODIPine Besylate 5 MG TABLET PO (08:05)
--- NOTE | 2023-04-17 14:32 | HO.PSYCHPN ---
Subjective Subjective Date of Service: 04/17/23 Reason For Visit: Anxiety, depression Subjective Notes: Conditional Voluntary Interim History: Pt sleeping through the night. No behavioral concerns. Pt has not shown aggression. She slightly irritable at times related to being here. Pt visible on the unit. No SI/HI. She is taking medications as prescribed. BP- trending down with amlodipine, still elevated. Review of Systems Review of Systems Patient has no acute medical complaints at this time Mental Status Exam Mental Status Exam Narrative: Appearance: casually groomed, good hygiene, restless Behavior: somewhat guarded Psychomotor: Restless asking what I should do Speech: clear, normal rate/rhythm/volume, spontaneous TP:goal oriented, wanting to go home TC: not liking where she lives and thinks she now lives here in hospital Mood: okay Affect: brighter SI: none HI: none VH/AH: none Delusions: somewhat suspicious Insight/judgment: impaired x 2. Memory/cog: alert, not oriented to place, situation nor month or year. Diagnostics Vital Signs (24Hr): Vital Signs - 24 hr 04/16/23 18:00 04/17/23 08:00 Temperature 98.0 F Pulse Rate 58 76 Respiratory Rate 17 18 Blood Pressure 143/64 H 174/75 H Pulse Oximetry 96 97 Oxygen Delivery Method Room Air Room Air BMI result Body Mass Index 21.6 Medications Medications Current Medications Acetaminophen (Acetaminophen 325 Mg Tablet) 650 mg PO Q6H PRN PRN Reason: Headache/Pain Mild Scale (1-3) Al Hydroxide/Mg Hydroxide (Magnesium Hydrox/Alum Hydrox 30 Ml Oral.Susp) 30 ml PO Q6H PRN PRN Reason: Heartburn/Nausea Amlodipine Besylate (Amlodipine Besylate 5 Mg Tablet) 5 mg PO DAILY [facility]; Protocol Last Admin: 04/17/23 08:05 Dose: 5 mg Donepezil HCl (Donepezil Hcl 10 Mg Tablet) 10 mg PO BEDTIME [facility] Last Admin: 04/16/23 20:04 Dose: 10 mg Levothyroxine Sodium (Levothyroxine Sodium 75 Mcg Tablet) 75 mcg PO DAILY@0700 [facility] Last Admin: 04/17/23 06:25 Dose: 75 mcg Magnesium Hydroxide (Milk Of Magnesia 30 Ml Oral.Susp) 30 ml PO DAILY PRN PRN Reason: Constipation Mirtazapine (Mirtazapine 7.5 Mg Tablet) 7.5 mg PO BEDTIME [facility] Last Admin: 04/16/23 20:04 Dose: 7.5 mg Olanzapine (Olanzapine 2.5 Mg Tablet) 2.5 mg PO TID PRN PRN Reason: agitation Pravastatin Sodium (Pravastatin Sodium 20 Mg Tablet) 20 mg PO DAILY [facility] Last Admin: 04/17/23 08:05 Dose: 20 mg Prednisone (Prednisone 2.5 Mg Tablet) 2.5 mg PO DAILY [facility] Last Admin: 04/17/23 08:05 Dose: 2.5 mg Risperidone (Risperidone 0.5 Mg Tablet) 0.5 mg PO BEDTIME [facility] Last Admin: 04/16/23 20:04 Dose: 0.5 mg Trazodone HCl (Trazodone Hcl 50 Mg Tablet) 50 mg PO BEDTIME MRX1 PRN PRN Reason: Insomnia Last Admin: 04/11/23 20:14 Dose: 50 mg Allergies Allergies Allergy/AdvReac Type Severity Reaction Status Date / Time citalopram AdvReac Unknown Verified 04/07/23 21:39 clopidogrel AdvReac Unknown Verified 04/07/23 21:39 isosorbide AdvReac Unknown Verified 04/07/23 21:39 tramadol AdvReac Unknown Verified 04/07/23 21:39 Assessment & Plan Assessment & Plan (1) Major neurocognitive disorder due to multiple etiologies: Status: Acute Code(s): F02.80 - Dementia in other diseases classified elsewhere, unspecified severity, without behavioral disturbance, psychotic disturbance, mood disturbance, and anxiety Plan Mrs. Vidal is an 83 year-old woman with hx of dementia, depression in her 40's (hx of ECT) who was brought to [facility] due to increase combative behaviora and increase paranoia. On the unit, pt presents as guarded and somewhat irritable. She thinks she now lives here. She has a HCP, who is her son. She is also DNR/DNI- pending copy of [facility] and HCP. PLAN 04/13 start risperidone 0.5mg po qhs. prn olanzapine but monitor for oversedation. SBP consistently elevated in 170-160's. Not on any HTN meds. Will start low dose amlodipine 2.5mg po daily. Meeting with son, who is HCP, Justin, scheduled for 04/15/202304/14 continue tx. 8/2 continue tx. 04/16 continue tx. 04/17 continue tx. Reason for continued inpatient stay Substantial Risk for: inability to function Time Spent With Patient Time: Total time managing care of this patient today ____ minutes.
[2023-04-17 18:00] VITALS: BP 145/66; PULSE 66; RESP 18; TEMP 36.8; O2SAT 95
[2023-04-17] MEDS: Donepezil HCl 10 MG TABLET PO (20:16)
[2023-04-17] MEDS: Mirtazapine 7.5 MG TABLET PO (20:16)
[2023-04-17] MEDS: risperiDONE 0.5 MG TABLET PO (20:16)
[2023-04-17] MEDS: traZODone HCL 50 MG TABLET PO (22:16)
[2023-04-18] MEDS: Levothyroxine Sodium 75 MCG TABLET PO (06:06)
[2023-04-18 08:35] VITALS: BP 146/65; PULSE 76; RESP 18; TEMP 36.2; O2SAT 96
[2023-04-18] MEDS: Pravastatin Sodium 20 MG TABLET PO (08:49)
[2023-04-18] MEDS: predniSONE 2.5 MG TABLET PO (08:49)
[2023-04-18] MEDS: amLODIPine Besylate 5 MG TABLET PO (08:50)
--- NOTE | 2023-04-18 11:23 | HO.PSYCHPN ---
Subjective Subjective Date of Service: 04/18/23 Reason For Visit: Anxiety, depression Subjective Notes: Conditional Voluntary Interim History: Patient was seen and discussed in rounds. Records and plans were reviewed. She has been doing better on the unit. She is responding to internal stimuli. Eating and sleeping adequately with trazodone. No side effects. No behavioral issues. No changes were made today Review of Systems Review of Systems Yes all other systems are reviewed and are negative Mental Status Exam Mental Status Exam Narrative: In today's visit she is alert to self. Soft-spoken speech. Some eye contact. Affect is appropriate and constricted. No acute signs of psychosis. Some paranoia reported. No dangerous behaviors. Cognitively is impaired. Judgment is marginal Diagnostics Vital Signs (24Hr): Vital Signs - 24 hr 04/17/23 18:00 04/18/23 08:35 Temperature 98.3 F 97.2 F Pulse Rate 66 76 Respiratory Rate 18 18 Blood Pressure 145/66 H 146/65 H Pulse Oximetry 95 96 Oxygen Delivery Method Room Air Room Air BMI result Body Mass Index 21.6 Medications Medications Current Medications Acetaminophen (Acetaminophen 325 Mg Tablet) 650 mg PO Q6H PRN PRN Reason: Headache/Pain Mild Scale (1-3) Al Hydroxide/Mg Hydroxide (Magnesium Hydrox/Alum Hydrox 30 Ml Oral.Susp) 30 ml PO Q6H PRN PRN Reason: Heartburn/Nausea Amlodipine Besylate (Amlodipine Besylate 5 Mg Tablet) 5 mg PO DAILY [facility]; Protocol Last Admin: 04/18/23 08:50 Dose: 5 mg Donepezil HCl (Donepezil Hcl 10 Mg Tablet) 10 mg PO BEDTIME [facility] Last Admin: 04/17/23 20:16 Dose: 10 mg Levothyroxine Sodium (Levothyroxine Sodium 75 Mcg Tablet) 75 mcg PO DAILY@0700 [facility] Last Admin: 04/18/23 06:06 Dose: 75 mcg Magnesium Hydroxide (Milk Of Magnesia 30 Ml Oral.Susp) 30 ml PO DAILY PRN PRN Reason: Constipation Mirtazapine (Mirtazapine 7.5 Mg Tablet) 7.5 mg PO BEDTIME [facility] Last Admin: 04/17/23 20:16 Dose: 7.5 mg Olanzapine (Olanzapine 2.5 Mg Tablet) 2.5 mg PO TID PRN PRN Reason: agitation Pravastatin Sodium (Pravastatin Sodium 20 Mg Tablet) 20 mg PO DAILY [facility] Last Admin: 04/18/23 08:49 Dose: 20 mg Prednisone (Prednisone 2.5 Mg Tablet) 2.5 mg PO DAILY [facility] Last Admin: 04/18/23 08:49 Dose: 2.5 mg Risperidone (Risperidone 0.5 Mg Tablet) 0.5 mg PO BEDTIME [facility] Last Admin: 04/17/23 20:16 Dose: 0.5 mg Trazodone HCl (Trazodone Hcl 50 Mg Tablet) 50 mg PO BEDTIME MRX1 PRN PRN Reason: Insomnia Last Admin: 04/17/23 22:16 Dose: 50 mg Allergies Allergies Allergy/AdvReac Type Severity Reaction Status Date / Time citalopram AdvReac Unknown Verified 04/07/23 21:39 clopidogrel AdvReac Unknown Verified 04/07/23 21:39 isosorbide AdvReac Unknown Verified 04/07/23 21:39 tramadol AdvReac Unknown Verified 04/07/23 21:39 Assessment & Plan Assessment & Plan (1) Major neurocognitive disorder due to multiple etiologies: Status: Acute Code(s): F02.80 - Dementia in other diseases classified elsewhere, unspecified severity, without behavioral disturbance, psychotic disturbance, mood disturbance, and anxiety Plan Mrs. Vidal is an 83 year-old woman with hx of dementia, depression in her 40's (hx of ECT) who was brought to [facility] due to increase combative behaviora and increase paranoia. On the unit, pt presents as guarded and somewhat irritable. She thinks she now lives here. She has a HCP, who is her son. She is also DNR/DNI- pending copy of [facility] and HCP. PLAN 04/13 start risperidone 0.5mg po qhs. prn olanzapine but monitor for oversedation. SBP consistently elevated in 170-160's. Not on any HTN meds. Will start low dose amlodipine 2.5mg po daily. Meeting with son, who is HCP, Justin, scheduled for 04/15/202304/14 continue tx. 04/15 continue tx. 04/16 continue tx. 04/17 continue tx. 04/18: Continue current regimen and plans Reason for continued inpatient stay Substantial Risk for: inability to function and med/psych decompensation Time Spent With Patient Time: Total time managing care of this patient today ____ minutes.
[2023-04-18 18:00] VITALS: BP 146/67; PULSE 57; RESP 18; TEMP 36.2; O2SAT 96
[2023-04-18] MEDS: Mirtazapine 7.5 MG TABLET PO (20:17)
[2023-04-18] MEDS: traZODone HCL 50 MG TABLET PO (20:17)
[2023-04-18] MEDS: Donepezil HCl 10 MG TABLET PO (20:17)
[2023-04-18] MEDS: risperiDONE 0.5 MG TABLET PO (20:48)
[2023-04-19] MEDS: Levothyroxine Sodium 75 MCG TABLET PO (06:13)
[2023-04-19 08:04] VITALS: BP 155/72; PULSE 77; RESP 18; TEMP 36.2; O2SAT 98
[2023-04-19] MEDS: amLODIPine Besylate 5 MG TABLET PO (08:25)
[2023-04-19] MEDS: Pravastatin Sodium 20 MG TABLET PO (08:26)
[2023-04-19] MEDS: predniSONE 2.5 MG TABLET PO (08:26)
--- NOTE | 2023-04-19 11:16 | HO.PSYCHPN ---
Subjective Subjective Date of Service: 04/19/23 Reason For Visit: Anxiety, depression Subjective Notes: Conditional Voluntary Interim History: Patient was seen and discussed in rounds. Records and plans were reviewed. She has continues to be confused but alert to person. She has been pleasant. Med and meal compliant. Sleeping adequately. No complaints. No behavioral issues reported. No changes were made Review of Systems Review of Systems Yes all other systems are reviewed and are negative Mental Status Exam Mental Status Exam Narrative: In today's visit she is alert to self. Soft-spoken speech. Some eye contact. Affect is appropriate and constricted. No acute signs of psychosis. Some paranoia reported. No dangerous behaviors. Cognitively is impaired. Judgment is marginal Diagnostics Vital Signs (24Hr): Vital Signs - 24 hr 04/18/23 18:00 04/19/23 08:04 Temperature 97.2 F 97.2 F Pulse Rate 57 77 Respiratory Rate 18 18 Blood Pressure 146/67 H 155/72 H Pulse Oximetry 96 98 Oxygen Delivery Method Room Air Room Air BMI result Body Mass Index 21.6 Medications Medications Current Medications Acetaminophen (Acetaminophen 325 Mg Tablet) 650 mg PO Q6H PRN PRN Reason: Headache/Pain Mild Scale (1-3) Al Hydroxide/Mg Hydroxide (Magnesium Hydrox/Alum Hydrox 30 Ml Oral.Susp) 30 ml PO Q6H PRN PRN Reason: Heartburn/Nausea Amlodipine Besylate (Amlodipine Besylate 5 Mg Tablet) 5 mg PO DAILY [facility]; Protocol Last Admin: 04/19/23 08:25 Dose: 5 mg Donepezil HCl (Donepezil Hcl 10 Mg Tablet) 10 mg PO BEDTIME [facility] Last Admin: 04/18/23 20:17 Dose: 10 mg Levothyroxine Sodium (Levothyroxine Sodium 75 Mcg Tablet) 75 mcg PO DAILY@0700 [facility] Last Admin: 04/19/23 06:13 Dose: 75 mcg Magnesium Hydroxide (Milk Of Magnesia 30 Ml Oral.Susp) 30 ml PO DAILY PRN PRN Reason: Constipation Mirtazapine (Mirtazapine 7.5 Mg Tablet) 7.5 mg PO BEDTIME [facility] Last Admin: 04/18/23 20:17 Dose: 7.5 mg Olanzapine (Olanzapine 2.5 Mg Tablet) 2.5 mg PO TID PRN PRN Reason: agitation Pravastatin Sodium (Pravastatin Sodium 20 Mg Tablet) 20 mg PO DAILY [facility] Last Admin: 04/19/23 08:26 Dose: 20 mg Prednisone (Prednisone 2.5 Mg Tablet) 2.5 mg PO DAILY [facility] Last Admin: 04/19/23 08:26 Dose: 2.5 mg Risperidone (Risperidone 0.5 Mg Tablet) 0.5 mg PO BEDTIME [facility] Last Admin: 04/18/23 20:48 Dose: 0.5 mg Trazodone HCl (Trazodone Hcl 50 Mg Tablet) 50 mg PO BEDTIME MRX1 PRN PRN Reason: Insomnia Last Admin: 04/18/23 20:17 Dose: 50 mg Allergies Allergies Allergy/AdvReac Type Severity Reaction Status Date / Time citalopram AdvReac Unknown Verified 04/07/23 21:39 clopidogrel AdvReac Unknown Verified 04/07/23 21:39 isosorbide AdvReac Unknown Verified 04/07/23 21:39 tramadol AdvReac Unknown Verified 04/07/23 21:39 Assessment & Plan Assessment & Plan (1) Major neurocognitive disorder due to multiple etiologies: Status: Acute Code(s): F02.80 - Dementia in other diseases classified elsewhere, unspecified severity, without behavioral disturbance, psychotic disturbance, mood disturbance, and anxiety Plan Mrs. Vidal is an 83 year-old woman with hx of dementia, depression in her 40's (hx of ECT) who was brought to [facility] due to increase combative behaviora and increase paranoia. On the unit, pt presents as guarded and somewhat irritable. She thinks she now lives here. She has a HCP, who is her son. She is also DNR/DNI- pending copy of [facility] and HCP. PLAN 04/13 start risperidone 0.5mg po qhs. prn olanzapine but monitor for oversedation. SBP consistently elevated in 170-160's. Not on any HTN meds. Will start low dose amlodipine 2.5mg po daily. Meeting with son, who is HCP, Justin, scheduled for 04/15/202304/14 continue tx. 04/15 continue tx. 04/16 continue tx. 04/17 continue tx. 04/18: Continue current regimen and plans 04/19: Continue current plans and regimen Reason for continued inpatient stay Substantial Risk for: inability to function Time Spent With Patient Time: Total time managing care of this patient today ____ minutes.
[2023-04-19 18:00] VITALS: BP 138/65; PULSE 71; RESP 18; TEMP 36.6; O2SAT 96
[2023-04-19] MEDS: risperiDONE 0.5 MG TABLET PO (20:41)
[2023-04-19] MEDS: Donepezil HCl 10 MG TABLET PO (20:41)
[2023-04-19] MEDS: Mirtazapine 7.5 MG TABLET PO (20:41)
[2023-04-19] MEDS: traZODone HCL 50 MG TABLET PO (20:41)
[2023-04-20] MEDS: Levothyroxine Sodium 75 MCG TABLET PO (06:25)
[2023-04-20 08:00] VITALS: BP 133/62; PULSE 67; RESP 18; TEMP 36.4; O2SAT 96
[2023-04-20] MEDS: predniSONE 2.5 MG TABLET PO (08:02)
[2023-04-20] MEDS: Pravastatin Sodium 20 MG TABLET PO (08:02)
[2023-04-20] MEDS: amLODIPine Besylate 5 MG TABLET PO (08:03)
--- NOTE | 2023-04-20 17:06 | P.PNPSI_ITS ---
Subjective Subjective Date of Service: 04/20/23 Reason For Visit: Anxiety, depression Subjective Notes: Conditional Voluntary Interim History: Pt continues to sleep through the night. She is visible on the unit, social with select peers. No behavioral concerns. Plan for d/c tomorrow. Medication Compliance: Yes Review of Systems Review of Systems Patient has no acute medical complaints at this time Yes all other systems are reviewed and are negative Mental Status Exam Mental Status Exam Patient Appearance: Appropriate Patient Orientation: Person and Situation Level of Consciousness: Awake Patient Behavior: Guarded Mood Description: Calm Affect Description: Constricted Patient Cognition Impaired: Yes Ability to Follow Directions: Good Speech Pattern: Clear Diagnostics Vital Signs (24Hr): Vital Signs - 24 hr 04/19/23 18:00 04/20/23 08:00 Temperature 98 F 97.5 F Pulse Rate 71 67 Respiratory Rate 18 18 Blood Pressure 138/65 133/62 Pulse Oximetry 96 96 Oxygen Delivery Method Room Air Room Air BMI result Body Mass Index 21.6 Medications Medications Current Medications Acetaminophen (Acetaminophen 325 Mg Tablet) 650 mg PO Q6H PRN PRN Reason: Headache/Pain Mild Scale (1-3) Al Hydroxide/Mg Hydroxide (Magnesium Hydrox/Alum Hydrox 30 Ml Oral.Susp) 30 ml PO Q6H PRN PRN Reason: Heartburn/Nausea Amlodipine Besylate (Amlodipine Besylate 5 Mg Tablet) 5 mg PO DAILY [facility]; Protocol Last Admin: 04/20/23 08:03 Dose: 5 mg Donepezil HCl (Donepezil Hcl 10 Mg Tablet) 10 mg PO BEDTIME [facility] Last Admin: 04/19/23 20:41 Dose: 10 mg Levothyroxine Sodium (Levothyroxine Sodium 75 Mcg Tablet) 75 mcg PO DAILY@0700 [facility] Last Admin: 04/20/23 06:25 Dose: 75 mcg Magnesium Hydroxide (Milk Of Magnesia 30 Ml Oral.Susp) 30 ml PO DAILY PRN PRN Reason: Constipation Mirtazapine (Mirtazapine 7.5 Mg Tablet) 7.5 mg PO BEDTIME [facility] Last Admin: 04/19/23 20:41 Dose: 7.5 mg Olanzapine (Olanzapine 2.5 Mg Tablet) 2.5 mg PO TID PRN PRN Reason: agitation Pravastatin Sodium (Pravastatin Sodium 20 Mg Tablet) 20 mg PO DAILY [facility] Last Admin: 04/20/23 08:02 Dose: 20 mg Prednisone (Prednisone 2.5 Mg Tablet) 2.5 mg PO DAILY [facility] Last Admin: 04/20/23 08:02 Dose: 2.5 mg Risperidone (Risperidone 0.5 Mg Tablet) 0.5 mg PO BEDTIME [facility] Last Admin: 04/19/23 20:41 Dose: 0.5 mg Trazodone HCl (Trazodone Hcl 50 Mg Tablet) 50 mg PO BEDTIME MRX1 PRN PRN Reason: Insomnia Last Admin: 04/19/23 20:41 Dose: 50 mg Allergies Allergies Allergy/AdvReac Type Severity Reaction Status Date / Time citalopram AdvReac Unknown Verified 04/07/23 21:39 clopidogrel AdvReac Unknown Verified 04/07/23 21:39 isosorbide AdvReac Unknown Verified 04/07/23 21:39 tramadol AdvReac Unknown Verified 04/07/23 21:39 Assessment & Plan Assessment & Plan (1) Major neurocognitive disorder due to multiple etiologies: Status: Acute Code(s): F02.80 - Dementia in other diseases classified elsewhere, unspecified severity, without behavioral disturbance, psychotic disturbance, mood disturbance, and a nxiety Plan Mrs. Vidal is an 83 year-old woman with hx of dementia, depression in her 40's (hx of ECT) who was brought to [facility] due to increase combative behaviora and increase paranoia. On the unit, pt presents as guarded and somewhat irritable. She thinks she now lives here. She has a HCP, who is her son. She is also DNR/DNI- pending copy of [facility] and HCP. PLAN 04/13 start risperidone 0.5mg po qhs. prn olanzapine but monitor for oversedation. SBP consistently elevated in 170-160's. Not on any HTN meds. Will start low dose amlodipine 2.5mg po daily. Meeting with son, who is HCP, Justin, scheduled for 04/15/202304/14 continue tx. 04/15 continue tx. 04/16 continue tx. 04/17 continue tx. 04/18: Continue current regimen and plans 04/19: Continue current plans and regimen 04/20 continue tx. Reason for continued inpatient stay Substantial Risk for: stable for discharge Time Spent With Patient Time: Total time managing care of this patient today ____ minutes.
[2023-04-20 19:35] VITALS: BP 140/83; PULSE 73; RESP 16; TEMP 36.4; O2SAT 97
[2023-04-20] MEDS: Mirtazapine 7.5 MG TABLET PO (20:22)
[2023-04-20] MEDS: Donepezil HCl 10 MG TABLET PO (20:22)
[2023-04-20] MEDS: risperiDONE 0.5 MG TABLET PO (20:22)
[2023-04-21] MEDS: Levothyroxine Sodium 75 MCG TABLET PO (06:15)
[2023-04-21 07:57] VITALS: BP 153/77; PULSE 78; RESP 16; TEMP 36.3; O2SAT 97
[2023-04-21] MEDS: predniSONE 2.5 MG TABLET PO (08:01)
[2023-04-21] MEDS: amLODIPine Besylate 5 MG TABLET PO (08:01)
[2023-04-21] MEDS: Pravastatin Sodium 20 MG TABLET PO (08:02)
--- NOTE | 2023-04-21 09:33 | PM.PSYDC ---
DS: Providers Provider Date of Service: 04/21/23 Date of admission: 04/07/23 19:03 Primary care physician: Unknown Physician Consults: 04/07/23 21:43 Consult to Hospitalist Routine Comment: Consulting Provider: Hospitalist Reason For Exam: admission physical DS: Diagnosis Discharge Diagnosis (1) Major neurocognitive disorder due to multiple etiologies: Status: Acute DS: Medications Discharge Medications Home Medications: Previous Rx's Medication Instructions Recorded amlodipine 5 mg tablet 5 mg PO DAILY #10 tabs 04/17/23 donepezil 10 mg tablet 10 mg PO BEDTIME #30 tabs 04/17/23 levothyroxine 75 mcg tablet 75 mcg PO DAILY@0700 #30 tabs 04/17/23 mirtazapine 7.5 mg tablet 7.5 mg PO BEDTIME #30 tabs 04/17/23 pravastatin 20 mg tablet 20 mg PO DAILY #30 tabs 04/17/23 prednisone 2.5 mg tablet 2.5 mg PO DAILY #30 tabs 04/17/23 risperidone 0.5 mg tablet 0.5 mg PO BEDTIME #30 tabs 04/17/23 trazodone 50 mg tablet 50 mg PO BEDTIME PRN Insomnia #30 04/17/23 tabs Mental Status Exam Mental Status Exam Narrative: Appearance: casually groomed, good hygiene, restless Behavior: somewhat guarded Psychomotor: no agitation or retardation noted Speech: clear, normal rate/rhythm/volume, spontaneous TP:goal oriented, wanting to go home TC: not liking where she lives and thinks she now lives here in hospital Mood: okay Affect: brighter SI: none HI: none VH/AH: none Delusions: none Insight/judgment: impaired x 2. Memory/cog: alert, not oriented to place, situation nor month or year. DS: Summary Hospital Course Hospital Course: Ms. Vidal is a 83 year-old woman with hx of Dementia and depression (hx of ECT in her 40's) who was brought to [facility] from [facility] where she resides due to increase paranoid, combative behaviors. On the unit, pt presents as intermittently irritable. She reports she does not like the other facility because they don't do anything. Pt does not seem to recall increase agitation nor combative behaviors there. She does not know the year or month. She believes she is now living here. She states, well, at least they have movies here, but it is loud. She denies any physical concerns. She denies SI/HI. No signs of psychosis but patient is guarded. Past Psychiatric History: Inpt: in her 40's pt has hx of ECT. Past medication trials: olanzapine Hx of suicide attempts but unclear dates Medical Evaluation Reviewed: Yes HOSPITAL COURSE On the unit, pt was admitted on a CV signed by her HCP. Pt presented as confused in terms of events leading to this admission. Pt did not recall any aggression towards staff at [facility]. Pt believed she now was living in the hospital. She denied SI/HI. No insight into extend of cognitive impairment. She was mostly asking to be discharged back home without insight as to the extend of supports she needs to live safely in the community. We discussed risks, benefits and alternative treatment options with her HCP, Justin her son. We continued aricept. We added low dose risperidone. She was continued on retirement prednisone for RA. She was noted to have elevated BP. She was started on amlodipine 5mg po daily. Pt needs to follow up with PCP regarding HTN management. There were no incidences of disruptive behaviors nor need for restraints. There were no aggression towards self or other others. Pt was sleeping through the night. Time Spent with Patient Time attestation: Total time managing care of this patient today ____ minutes. Discharge Plan Discharge Anticipated Discharge Date/Time: 04/21/23 09:29 Patient Disposition: Home, Self-Care Discharge Diagnosis: Mayor Neurocognitive Disorder Referrals: PCP: DAVI Cox ([facility]) [Other] - 04/22/23 1:00 pm [facility] [Other] - 1 Week (Transfer back to Assisted Living on 04/21/23 at 1100.) Discharge Medications: New trazodone 50 mg Tablet 50 mg PO BEDTIME PRN (Reason: Insomnia) Qty: 30 0RF donepezil 10 mg Tablet 10 mg PO BEDTIME Qty: 30 0RF amlodipine 5 mg Tablet 5 mg PO DAILY Qty: 10 0RF Protocol: Hold for SBP< HOLD for SBP < : 90 levothyroxine 75 mcg Tablet 75 mcg PO DAILY@0700 Qty: 30 0RF prednisone 2.5 mg Tablet 2.5 mg PO DAILY Qty: 30 0RF pravastatin 20 mg Tablet 20 mg PO DAILY Qty: 30 0RF risperidone 0.5 mg Tablet 0.5 mg PO BEDTIME Qty: 30 0RF mirtazapine 7.5 mg Tablet 7.5 mg PO BEDTIME Qty: 30 0RF Discontinued donepezil 10 mg Tablet 10 mg PO BEDTIME levothyroxine 75 mcg Tablet 75 mcg PO DAILY Rx Instructions: Do not administer on Sundays prednisone 2.5 mg Tablet 2.5 mg PO DAILY pravastatin 20 mg Tablet 20 mg PO DAILY mirtazapine 7.5 mg Tablet 7.5 mg PO BEDTIME Discharge Orders: Discharge Order (Routine); Ordered 04/21/23 Ordered By: Evelia Mireles Diet: Low salt diet Activity on Discharge: As tolerated Stand Alone Forms: Patient Portal Discharge page Care Plan Goals: 1. Maintain mood 2. No SI/HI 3. No aggression towards self or others. Health Concerns: Follow up with PCP for routine care and management of HTN. Started on Amlodipine 5mg po daily. Plan of Treatment: 1. Take medications as prescribed 2. Go to nearest ED or call 911 in event of emergency Assessment: Pt with bright, less suspicious affect. No SI/HI. No overt delusional content or psychosis. Pt sleeping through the night. No signs of aggression towards self or others.
--- NOTE | 2023-04-21 10:57 | PC.NURSE ---
Patient alert and oriented to person only. Pt aware of discharge and reports readiness for discharge. Educated on medications and f/u appointments. Denies pain. Denies SI/HI. Pt discharged with her belongigs. Pt left the unit to [facility] by ambulance at 10:45.
== END 2023-04-21 10:45 | disposition home or self-care (01) | DRG 884 ==
PROVIDERS: Psychiatry & Neurology Psychiatry; Admitting Provider Psychiatry & Neurology Psychiatry; Visit Provider Psychiatry & Neurology Psychiatry
DX: F03.90 Unspecified dementia, unspecified severity, without behavioral disturbance, psychotic disturbance, mood disturbance, and anxiety (principal); Z66 Do not resuscitate; E03.9 Hypothyroidism, unspecified; Z91.51 Personal history of suicidal behavior; Z79.52 Long term (current) use of systemic steroids; Z79.890 Hormone replacement therapy; Z79.899 Other long term (current) drug therapy
CPT/HCPCS: 36415; 80061; 83036; 84439; 84443; 93005

== ENCOUNTER 2023-04-07 19:03 | Outpatient (BNV) | payer MEDICARE, SELFPAY | END 2023-04-08 22:07 | PROVIDERS: Admitting Provider Psychiatry & Neurology Psychiatry; Visit Provider Internal Medicine Cardiovascular Disease | DX: R07.9 Chest pain, unspecified (principal) | CPT/HCPCS: 93010 ==

== ENCOUNTER → 2023-04-07 19:03 | Outpatient (BNV) | payer MEDICARE, SELFPAY | PROVIDERS: Admitting Provider Psychiatry & Neurology Psychiatry; Visit Provider Psychiatry & Neurology Psychiatry | DX: F03.90 Unspecified dementia, unspecified severity, without behavioral disturbance, psychotic disturbance, mood disturbance, and anxiety (principal) | CPT/HCPCS: 99499 ==

== ENCOUNTER → 2023-04-07 19:03 | Outpatient (BNV) | payer MEDICARE, SELFPAY | PROVIDERS: Admitting Provider Psychiatry & Neurology Psychiatry; Visit Provider Social Worker | DX: F03.90 Unspecified dementia, unspecified severity, without behavioral disturbance, psychotic disturbance, mood disturbance, and anxiety (principal) | CPT/HCPCS: 90792; 99231; 99232; 99238 ==

== ENCOUNTER → 2023-04-07 19:03 | Outpatient (BNV) | payer MEDICARE, SELFPAY | PROVIDERS: Admitting Provider Psychiatry & Neurology Psychiatry; Visit Provider Student in an Organized Health Care Education/Training Program | DX: Z02.89 Encounter for other administrative examinations (principal) | CPT/HCPCS: 99429 ==